=== PATIENT | female | born 1960 | race Caucasian/White ===

== ENCOUNTER 2017-05-18 05:34 | Day surgery (SDC) | payer OTHER ==
[2017-05-18] MEDS ORDERED: ceFAZolin 2 GM/DEXTROSE 100 ML IV ONE (05:47)
[2017-05-18] MEDS ORDERED: LR 1,000 ML IV SCH (05:47)
[2017-05-18] MEDS ORDERED: LIDOCAINE 1% 2 ML INJ ID PRN (06:12)
[2017-05-18] MEDS ORDERED: LR 1,000 ML IV ONE (06:12)
[2017-05-18] MEDS ORDERED: SURGIFLO MATRIX KIT WITH THROMBIN TP ONE (06:49)
[2017-05-18] MEDS ORDERED: BACITRACIN 50,000 UNITS/10 ML SYR IRR ONE (06:50)
[2017-05-18] MEDS ORDERED: THROMBIN (BOVINE) 5,000 UNIT VIAL TP ONE (06:50)
[2017-05-18] MEDS ORDERED: BUPIVACAINE/EPI 0.25% 30 ML SDV ONE (06:50)
[2017-05-18] MEDS ORDERED: fentaNYL 100 MCG/2 ML INJ ONE ×3 (07:12→09:46)
[2017-05-18] MEDS ORDERED: PROPOFOL/EMULSION 500 MG/50 ML BOTTLE IV ONE (07:12)
[2017-05-18] MEDS ORDERED: MIDAZOLAM 2 MG/2 ML VIAL ONE (07:13)
--- NOTE | 2017-05-18 07:16 | PDHPUP ---
History & Physical Update H&P update statement: This history and physical update is based on an assessment of the patient which was completed after admission or registration (within 24 hours), but prior to the surgery/procedure. H&P update: H&P reviewed & patient examined, no change in patient's condition since H&P completed
--- NOTE | 2017-05-18 07:26 | PDANEPAE ---
ANE Past Medical History - Cardiovascular History Hx Hypertension: No Hx Arrhythmias: No Hx Chest Pain: No Hx Coronary Artery / Peripheral Vascular Disease: No Hx CHF / Valvular Disease: No Hx Palpitations: No - Pulmonary History Hx COPD: No Hx Asthma/Reactive Airway Disease: No Hx Recent Upper Respiratory Infection: No Hx Oxygen in Use at Home: No Hx Sleep Apnea: No Sleep Apnea Screening Result - Last Documented: Negative - Neurologic History Hx Cerebrovascular Accident: No Hx Seizures: No Hx Dementia: No - Endocrine History Hx Diabetes: No - Renal History Hx Renal Disorders: No - Liver History Hx Hepatic Disorders: No - Neurological & Psychiatric Hx Hx Neurological and Psychiatric Disorders: No - Cancer History Hx Cancer: No - Congenital Disorder History Hx Congenital Disorders: No - GI History Hx Gastrointestinal Disorders: No - Surgical History Prior Surgeries: Hysterectomy ANE Review of Systems - Exercise capacity METS (RN): 5 METS ANE Patient History - Allergies Allergies/Adverse Reactions: No Known Allergies Allergy (Unverified 08/14/14 17:37) - Home Medications Home Medications: Estradiol 08/14/14 [Last Taken 05/18/17] oxyCODONE HCL/ACETAMINOPHEN [Percocet 5-325 mg Tablet] PRN 05/18/17 [Last Taken 05/17/17 23:45] - NPO status NPO Since - Liquids (Date): 05/17/17 NPO Since - Liquids (Time): 23:45 NPO Since - Solids (Date): 05/17/17 NPO Since - Solids (Time): 19:00 - Smoking Hx Smoking Status: Never smoked - Family Anes Hx Family Hx Anesthesia Complications: none ANE Labs/Vital Signs - Vital Signs Blood Pressure: 123/86 Heart Rate: 66 Respiratory Rate: 16 O2 Sat (%): 16 Height: 170.18 cm Weight: 77.111 kg ANE Physical Exam - Airway Neck exam: FROM Mallampati Score: Class 1 Mouth exam: normal dental/mouth exam - Pulmonary Pulmonary: no respiratory distress, no rales or rhonchi, clear to auscultation - Cardiovascular Cardiovascular: regular rate and rhythym, no murmur, rub, or gallop, pulses symmetric bilaterally - ASA Status ASA Status: I ANE Anesthesia Plan Anesthesia Plan: general endotracheal anesthesia
--- NOTE | 2017-05-18 07:28 | PDGENHP ---
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 Patience Shaikh is a 56 y/o who reports lower back and LT leg pain. She has MRI imaging of L-spine WO from [facility] on 04/24/17 that reveals moderate central canal stenosis and severe LT lateral recess stenosis at L4-5, secondary to LT paramedian disc herniation, extrusion, causing compression of the LT L5 nerve root. At the L3-4 level there is mild degenerative disc disease and mild bilateral facet arthropathy, resulting in mild central canal stenosis without neural foraminal stenosis. The only nonsurgical treatment she has not tried is an ANDREAS. She could try the ANDREAS and if it failed she could move forward with a surgical intervention. Her disc is large enough that an ANDREAS may not alleviate her pain. It would also be reasonable to skip the ANDREAS and undergo a microdiscectomy. I discussed the risks, benefits, and alternatives to the surgical intervention including the pre and post-op expectations and the procedure in great detail. She is scheduled for an appointment with Dr. Staley tomorrow. I will write an order for a LT L4-5 TFESI. If she decides to move forward with surgery she will call the office. All questions were answered, all red flags were discussed, and the patient was pleased with the plan. The patient was instructed to call the office with any questions or new/worsening symptoms. This document serves as a record of the services and decisions personally performed and made by Dr. Brittni Castillo DO. It was created on her behalf by Мария Ellsworth, a trained medical insurance collector. -Мария Ellsworth M51.26 - Other intervertebral disc displacement, lumbar region M54.16 - Radiculopathy, lumbar region CC/HPI Describe the reason for today's visit Patience Shaikh is a 56 y/o female who is presenting to the clinic today for lower back and LT leg pain. The pain begins in the LT lower back and radiates to LT buttock into posterior thigh, posterior calf and ankle. The pain has been present for 3.5 weeks without inciting incident and is constant. She began having leg pain this past winter but it was mild and intermittent at the time.On Mother's day she did some gentle yoga and had yayo low back pain but the next day developed severe left leg pain that has been unrelenting. Her pain improves with forward flexion and sleeping in the position. Straightening her torso worsens the pain.She rates her pain as 10/10 and she ambulates with a walker secondary to pain. She went to PT and saw a chiropractor without relief. She tried a seven day course of prednisone without any pain relief. Denies true weakness, numbness, tingling, GI/ loss of control. She has tried NSAIDs. No ANDREAS history. ROS Eyes Wear glasses Neurological Vertigo/Dizziness Musculoskeletal Back pain Leg pain Left Arthritis MEDICATIONS [ 1 ] : Click here for External Information related to this code Click here for Additional Information related to this code Date - 04/26/2017 12:00:00 AM [ Current Medication] Drug: Valium 5mg Tablet Si Tablet oral every 8 hours prn spasm Dispense: [id number] Allowed Refills: 0 Remain Refills: 0 VITALS [ 1 ] Date: 04/26/2017 4:21:24 PM Temperature : 98.20 F. 36.78 C Blood Pressure : 110 / 68 Pulse: 81 beats/minute PE Neuro Normal Constitutional No acute distress. Well developed Appropriate mood and affect Reflexes Brachioradialis (C5-6) Left 2+ Right 2+ Patellar Left 2+ Right 2+ Other Reflexes Hoffmans Absent Bilaterally Motor Examination Strength Upper Extremities Deltoid (C5-6) Bilaterally 5/5 Biceps-brachialis (C5-6) Bilaterally 5/5 Triceps(C7-8) Bilaterally 5/5 Interossei (C8-T1) Bilaterally 5/5 Strength Lower Extremities Iliopsoas (L1-L4) Bilaterally 5/5 Quadriceps (L2-L4) Bilaterally 5/5 Hamstrings (L4-L5, S1) Bilaterally 5/5 Tibialis Anterior(L4-L5, S1) Bilaterally 5/5 Gastrocnemius, soleus (S1, S2) Bilaterally 5/5 Extensor Hallucis (L5) Bilaterally 5/5 Gait antalgic Balance Tandem gait Normal Rhomberg Negative Other No tenderness over the midline spine Straight leg raise positive on left at 45 degrees cranial nerves CNII-XII intact No facialasymmetry No tongue deviation EOMI Neurological Sensory Intact to light touch throughout ADDITIONAL ENCOUNTER INFORMATION This visit was face to face and over 60 min long and over 50% of the time was spent on counseling and coordination of care.
[2017-05-18] MEDS ORDERED: fentaNYL 100 MCG/2 ML INJ IVP PRN (07:57)
[2017-05-18] MEDS ORDERED: MEPERIDINE 25 MG/ML SYR IVP PRN (07:57)
[2017-05-18] MEDS ORDERED: LR 500 ML IV PRN (07:57)
[2017-05-18] MEDS ORDERED: ACETAMINOPHEN 500 MG TAB PO PRN (07:57)
[2017-05-18] MEDS ORDERED: OXYCODONE/APAP 5/325 TAB PO PRN (07:57)
[2017-05-18] MEDS ORDERED: DEXAMETHASONE 4 MG/ML VIAL IVP PRN (07:57)
[2017-05-18] MEDS ORDERED: NALOXONE HCL 0.4 MG/ML INJ IVP PRN (07:57)
[2017-05-18] MEDS ORDERED: PROMETHAZINE HCL 25 MG/ML INJ IVP PRN (07:57)
[2017-05-18] MEDS ORDERED: METOCLOPRAMIDE 10 MG/2 ML VIAL IVP PRN (07:57)
[2017-05-18] MEDS ORDERED: HYDROCODONE/APAP 5/325 TAB PO PRN (07:57)
[2017-05-18] MEDS ORDERED: ONDANSETRON 4 MG/2 ML VIAL IVP PRN (07:57)
[2017-05-18] MEDS ORDERED: ROCURONIUM 50 MG/5 ML VIAL ONE (08:18)
[2017-05-18] MEDS ORDERED: ONDANSETRON 4 MG/2 ML VIAL ONE (08:18)
[2017-05-18] MEDS ORDERED: RANITIDINE 50 MG/2 ML VIAL ONE (08:18)
[2017-05-18] MEDS ORDERED: METOCLOPRAMIDE 10 MG/2 ML VIAL ONE (08:18)
[2017-05-18] MEDS ORDERED: SUGAMMADEX SODIUM 200 MG/2 ML VIAL IVP ONE (08:18)
[2017-05-18] MEDS ORDERED: DEXAMETHASONE 4 MG/ML VIAL ONE (08:18)
[2017-05-18] MEDS ORDERED: LIDOCAINE 2% 5 ML SDV ONE (08:19)
[2017-05-18] MEDS ORDERED: PROPOFOL 200 MG/20 ML VIAL ONE (08:35)
[2017-05-18] MEDS ORDERED: methylPREDNISolone SOD SUCC 125 MG/2 ML VIAL ONE ×2 (08:59→09:03)
[2017-05-18] MEDS ORDERED: oxyCODONE IR 5 MG TAB PO PRN (09:17)
[2017-05-18] MEDS ORDERED: ONDANSETRON DISINTEGRATING 4 MG TAB PO PRN (09:17)
[2017-05-18] MEDS ORDERED: DIAZEPAM 5 MG TAB PO PRN (09:18)
--- NOTE | 2017-05-18 09:27 | GOP ---
[f rep st] OPERATIVE REPORT DATE OF OPERATION: 05/18/2017 SURGEON: Brittni Castillo DO NEUROSURGEON: Brittni Castillo DO. SURVEY TECHNOLOGIST: JOHNNY Chiu. PREOPERATIVE DIAGNOSIS: 1. Herniated disc, L4-5. 2. Radiculopathy. POSTOPERATIVE DIAGNOSIS: 1. Herniated disc, L4-5. 2. Radiculopathy. PROCEDURE PERFORMED: 1. Left L4-5 microdiskectomy. 2. Microscope. FINDINGS: SPECIMENS: None. ESTIMATED BLOOD LOSS: 20. INDICATIONS: This is a 56-year-old female with a radiculopathy secondary to a moderately large-size d left L4-5 herniated disc, who has failed conservative management including injections, physical th erapy, and anti-inflammatory. She elected to move forward with microdiskectomy. DESCRIPTION OF PROCEDURE: She was identified. Consented and sites were marked. Brought to the ope rating room, anesthetized under general endotracheal tube anesthesia, rolled onto the OR bed with a Quentin frame. All pressure points were appropriately padded. Incision site was marked using 18-gau ge spinal needle, after cleansing the skin with chlorhexidine and x-ray. We then prepped and draped in the usual sterile fashion. Incision was made with a 10 blade. Hemostasis obtained with Bovie a nd bipolar cautery dissecting down onto the laminae of L4 and L5 we found we were in the appropriate position. Under x-ray we used a high-speed drill to create a laminotomy and opened the ligamentum flavum with a ball-tip probe. We used 2 and 3 Kerrisons to extend the laminotomy until we could candace ntify we were able to identify the nerve root out the foramen and the nerve root inferior, took an x -ray, verified we were in appropriate position. Retracted nerve root medially, opened the anulus wi th an 11 blade and using a ball-tip probe, Pituitaries and Peapod we were able to extract 3 large pi eces of disc. The nerve and nerve roots were well decompressed. We opened the foramen at L4-5 with 2 and 3 Kerrisons and once we were well-decompressed meticulous hemostasis was obtained with bipola r cautery and FloSeal. Once meticulous hemostasis had been obtained, we copiously irrigated with ba citracin-infused saline. We then placed 125 mg Solu-Medrol directly over the nerve, removed the Sha ritchie Line retractor, removed the microscope, closed the fascia with 0 Vicryl pop-offs. Subcutaneous layer with 2-0 Vicryl pop-offs, cutaneous layer with 3-0 Vicryl pop-offs. The skin was closed with a 4-0 running Monocryl, subcuticular stitch and Steri-Strips. The patient tolerated the procedure w ell. Neuro monitoring remained stable. There were no complications. FLUIDS: 200 mL of crystalloid. URINE OUTPUT: None. DRAINS: None. COMPLICATIONS: None. /[id number]/MODL
[2017-05-18] MEDS: fentaNYL 100 MCG/2 ML INJ IVP PRN ×3 (09:35→10:50)
--- NOTE | 2017-05-18 09:37 | POSTANESTH ---
Post Anesthetic Evaluation Cardiovascular Status: Normal, Stable Respiratory Status: Normal, Stable Level of Consciousness/Mental Status: Can Participate in Eval Pain Control: Adequate, Prn Tx Ordered Nausea/Vomiting Control: Adequate, Prn Tx Ordered Complications Possibly Related to Anesthesia: None Noted
--- NOTE | 2017-05-18 09:37 | POSTOPPROG ---
Post Op Note Date of Operation: 05/18/17 Surgeon: Brittni Castillo Stroboscope Operator: Maribeth Valladares PA-C Anesthesia: GET(General Endotracheal) Pre-op Diagnosis: Lumbar disc herniation Post-op Diagnosis: Lumbar disc herniation Procedure: Left L4/5 microdiscectomy Inf/Abcess present in the surg proc area at time of surgery?: No Depth: Deep Incisional (Fascial) EBL: Minimal Plan Plan: 56 yo female s/p left L4/5 microdiscectomy - neuro checks - pain control - advance diet as tolerated - dc home today Exam Awake. Alert Following commands Muscle strength full at 5/5 Sensation intact
[2017-05-18 11:06] VITALS: PULSE 69; RESP 14; TEMP 97.5
[2017-05-18 12:57] VITALS: BP 112/68; O2SAT 96
== END 2017-05-18 12:37 | disposition home or self-care (01) ==
LOC: FSGY 05:34
PROVIDERS: ATTEND Neurological Surgery
PROC: 0SB20ZZ Excision of Lumbar Vertebral Disc, Open Approach (ICD-10-PCS; principal; 2017-05-18 07:15)
DX: M51.26 Other intervertebral disc displacement, lumbar region (principal); M54.16 Radiculopathy, lumbar region
CPT/HCPCS: J0690; J1100; J2250; J2405; J2704; J2765; J2780; J3010